=== PATIENT | male | born 1955 | race Caucasian/White ===

== ENCOUNTER 2022-02-11 17:53 | Emergency (ER) | payer BC, MEDICARE, OTHER ==
[~2022-02-11 17:53] MED LIST: FOLI-43 PO; MAGN296S68 CORPAK; POLY17PO10 PO; SEVE800T8 PO; VIT1TABL50 PO
== END 2022-02-11 20:43 | disposition left against medical advice (07) ==
LOC: ER 17:54
DX: S61.219A Laceration without foreign body of unspecified finger without damage to nail, initial encounter (principal); Z53.21 Procedure and treatment not carried out due to patient leaving prior to being seen by health care provider; X58.XXXA Exposure to other specified factors, initial encounter; Y93.89 Activity, other specified; Y92.89 Other specified places as the place of occurrence of the external cause; Y99.8 Other external cause status